=== PATIENT | female | born 1995 | race Two or more races ===

== ENCOUNTER 2019-07-15 12:30 | Observation (INO) | payer MEDICAID | END 2019-07-15 14:15 | disposition home or self-care (01) | DRG 861 | LOC: LDRP 12:30 | PROVIDERS: ADMIT Specialist; ATTEND Specialist | DX: Z34.83 Encounter for supervision of other normal pregnancy, third trimester (principal); Z3A.40 40 weeks gestation of pregnancy | CPT/HCPCS: 59025; 76818; 81002; G0378 ==

== ENCOUNTER 2019-07-17 08:56 | Observation (INO) | payer MEDICAID ==
[2019-07-17] MEDS ORDERED: PREN-96 PO (11:42)
[2019-07-17 13:11] LABS: Basophils # (auto) 0 uL; Basophils % (auto) 0.4 % (0.0-2.0); Hemoglobin 11.9 g/dL (12.2-16.2); Monocytes # (auto) 0.5 uL; White Blood Cell 9.1 10^3/uL (4.4-10.8)
[2019-07-17 13:12] LABS: Eosinophils # (auto) 0 uL; Eosinophils % (auto) 0.4 % (0.0-7.0); Hematocrit 36.1 % (36.0-46.0); Lymphocytes # (auto) 1.4 uL; Lymphocytes % (auto) 15.9 % (10.0-50.0); Mean Corpuscular Hemoglobin 26.7 pg (28.0-32.0); Mean Corpuscular Hgb Conc. 32.9 g/dL (32.0-36.0); Mean Corpuscular Volume 81.2 fL (80.0-100.0); Neutrophils # (auto) 7.1 uL; Neutrophils % (auto) 78.3 % (37.0-80.0); Platelet Count (auto) 147 10^3/uL (140-450); Red Blood Cells 4.44 10^6/uL (4.0-5.20); Red Cell Distribution Width 16.4 % (11.8-14.3)
[2019-07-17 13:14] LABS: Albumin 2.5 g/dL (3.4-5.0); Calcium 8.7 mg/dL (8.5-10.1); Potassium 4.1 mmol/L (3.5-5.1)
[2019-07-17 13:16] LABS: INR < 0.93 (0.9-1.15); Partial Thromboplastin Time 25.1 sec (23.64-32.05)
[2019-07-17 13:23] LABS: BUN/Creatinine Ratio 14.8; Bilirubin, Total 0.2 mg/dL (0.2-1.0); Total Protein 6.4 g/dL (6.4-8.2); Uric Acid 4.2 mg/dL (2.6-6.0)
[2019-07-17 13:44] LABS: Urine Bacteria FEW /hpf (None Seen); Urine Blood Negative /uL (Negative); Urine Mucus FEW (None Seen); Urine WBC 298 /hpf (0 - 5)
== END 2019-07-17 15:00 | disposition home or self-care (01) | DRG 566 ==
LOC: LDRP 08:56
PROVIDERS: ADMIT Obstetrics & Gynecology; ATTEND Obstetrics & Gynecology
DX: O48.0 Post-term pregnancy (principal); Z3A.40 40 weeks gestation of pregnancy
CPT/HCPCS: 36415; 59025; 76818; 80053; 81001; 81002; 84550; 85025; 85610; 85730; G0378

== ENCOUNTER 2019-07-19 09:26 | Observation (INO) | payer MEDICAID ==
[~2019-07-19 09:26] MED LIST: PREN-96 PO
[2019-07-19 11:34] LABS: Protein, Urine 17.8 mg/dL (0.0-11.9)
[2019-07-19 11:38] LABS: 24 Hr. Total Protein, Urine 302.6 mg/24 Hr (<149.1)
== END 2019-07-19 11:57 | disposition home or self-care (01) | DRG 861 ==
LOC: LDRP 09:26
PROVIDERS: ADMIT Specialist; ATTEND Specialist
DX: Z34.83 Encounter for supervision of other normal pregnancy, third trimester (principal); Z3A.40 40 weeks gestation of pregnancy
CPT/HCPCS: 59025; 76818; 81002; 84156; G0378

== ENCOUNTER 2019-07-20 05:39 | Inpatient (IN) | payer MEDICAID ==
[~2019-07-20] VITALS: Ht 160 cm; Wt 80.7 kg
[2019-07-20] MEDS ORDERED: LACT. RINGERS/OXYTOCIN 20UNITS 1,000 ML IV SCH ×2 (07:38→17:00)
[2019-07-20] MEDS ORDERED: PHISODERM TOP SOLN 240ML BTL TOP PRN (07:45)
[2019-07-20] MEDS ORDERED: WITCH HAZEL-GLYCERIN PAD TOP PRN (07:45)
[2019-07-20] MEDS ORDERED: LIDOCAINE 2%HCL (LOCAL ANESTH.) INJ 20ML MDV ID ONE (07:45)
[2019-07-20] MEDS ORDERED: DERMOPLAST 60ML BOTTLE TOP PRN (07:45)
[2019-07-20 08:50] LABS: Urine Bacteria FEW /hpf (None Seen); Urine Blood 1+ /uL (Negative); Urine Specific Gravity 1.011 (1.001-1.035); Urine WBC 10 /hpf (0 - 5)
[2019-07-20 08:54] LABS: Basophils # (auto) 0 uL; Eosinophils # (auto) 0 uL; Hemoglobin 11.8 g/dL (12.2-16.2); Lymphocytes # (auto) 1.5 uL; Monocytes # (auto) 0.5 uL; Nucleated Red Blood Cells % 0.1 %
[2019-07-20 08:56] LABS: Basophils % (auto) 0.3 % (0.0-2.0); Eosinophils % (auto) 0.5 % (0.0-7.0); Hematocrit 35.5 % (36.0-46.0); Lymphocytes % (auto) 18.2 % (10.0-50.0); Mean Corpuscular Hemoglobin 26.9 pg (28.0-32.0); Mean Corpuscular Hgb Conc. 33.3 g/dL (32.0-36.0); Mean Corpuscular Volume 80.8 fL (80.0-100.0); Monocytes % (auto) 5.9 % (0.0-12.0); Neutrophils # (auto) 6.2 uL; Neutrophils % (auto) 75.1 % (37.0-80.0); Platelet Count (auto) 136 10^3/uL (140-450); Red Blood Cells 4.39 10^6/uL (4.0-5.20); Red Cell Distribution Width 16.4 % (11.8-14.3); White Blood Cell 8.2 10^3/uL (4.4-10.8)
[2019-07-20 09:00] LABS: INR < 0.93 (0.9-1.15); Partial Thromboplastin Time 25.6 sec (23.64-32.05)
[2019-07-20 09:05] LABS: Albumin 2.4 g/dL (3.4-5.0); Calcium 8.4 mg/dL (8.5-10.1); Potassium 3.9 mmol/L (3.5-5.1)
[2019-07-20 09:07] LABS: BUN/Creatinine Ratio 19.6
[2019-07-20 09:08] LABS: Alcohol, Urine < 3.0 mg/dL (0-5); Amphetamine Screen, Urine NEGATIVE (NEGATIVE); Barbiturate Scree,Urine NEGATIVE (NEGATIVE); Benzodiazephine Screen, Urine NEGATIVE (NEGATIVE); Cannabinoid Screen, Urine NEGATIVE (NEGATIVE); Cocaine Screen, Urine NEGATIVE (NEGATIVE); Opiate Scree,Urine NEGATIVE (NEGATIVE); Phencyclidine Screen, Urine NEGATIVE (NEGATIVE)
[2019-07-20 09:10] LABS: Bilirubin, Total 0.2 mg/dL (0.2-1.0)
[2019-07-20] MEDS: LACTATED RINGER'S 1,000 ML IV SCH ×3 (11:55→22:00)
[2019-07-20] MEDS ORDERED: TERBUTALINE SULFATE 1 MG/ML 1ML VIAL SC ONE (17:00)
[2019-07-20] MEDS ORDERED: LACTATED RINGER'S 1,000 ML IV ONE (20:10)
[2019-07-20] MEDS ORDERED: ePHEDrine SULFATE 50 MG/ML AMP IV ONE (20:15)
[2019-07-20] MEDS ORDERED: NALOXONE HCL 0.4 MG/ML VIAL IV ONE (20:15)
[2019-07-20] MEDS ORDERED: ceFAZolin 1GM 2 GM in D5W 5% 100 ML IV ONE (20:15)
[2019-07-20] MEDS ORDERED: fentaNYL W ROPIVACAINE 150 ML EPI SCH (20:15)
[2019-07-20] MEDS ORDERED: ceFAZolin 1GM/50ML 100 ML IV ONE (20:22)
[2019-07-20] MEDS ORDERED: ONDANSETRON HCL 4 MG/2 ML VIAL IV PRN (21:30)
[2019-07-21] MEDS: ceFAZolin 1GM/50ML 50 ML IV SCH ×2 (04:14→06:00)
[2019-07-21] MEDS: LACTATED RINGER'S 1,000 ML IV SCH (05:02)
[2019-07-21 09:30] VITALS: BP 123/66
--- NOTE | 2019-07-21 09:30 | NUR ---
Ambulation: Patient OOB with standby assistance by RN. Patient ambulated to bathroom with steady gait. Patient able to void 250ML without difficulty. [facility]icare teaching provided with returned demonstration by patient. Clean gown provided and bed linen changed. Patient ambulated back to bed with steady gait and no distress noted.
--- NOTE | 2019-07-21 10:03 | NUR ---
VOID #2 PT AMBULATED TO BATHROOM VIA STEADY GAIT. PT VOIDED 250ML CONRAD COLORED URINE. PT TOLERATED WELL. WILL CONTINUE TO MONITOR.
[2019-07-21 11:00] VITALS: BP 121/58
[2019-07-21] MEDS: IBUPROFEN 600 MG TAB PO PRN ×3 (11:20→22:54)
[2019-07-21 15:30] VITALS: BP 112/67
[2019-07-21 18:50] VITALS: BP 116/70
--- NOTE | 2019-07-21 18:50 | NUR ---
IV removal IV DC'd with sterile technique, catheter fully intact. Pressure dressing applied to site. Patient tolerated procedure well.
[2019-07-21 23:00] VITALS: BP 117/61
[2019-07-22 03:09] VITALS: BP 111/69
[2019-07-22 04:06] LABS: RPR Non Reactive (Non Reactive)
[2019-07-22] MEDS ORDERED: ACETAMINOPHEN 325 MG TAB PO PRN (04:45)
[2019-07-22 06:06] LABS: Rubella Antibodies, IgG 2.43 index (Immune >0.99)
[2019-07-22 06:35] VITALS: BP 107/67
[2019-07-22] MEDS: IBUPROFEN 600 MG TAB PO PRN ×3 (06:50→19:23)
[2019-07-22 10:44] VITALS: BP 106/70
[2019-07-22 14:47] VITALS: BP 120/80
[2019-07-22 19:15] VITALS: BP 122/70
[2019-07-22 23:00] VITALS: BP 116/73
[2019-07-23 03:00] VITALS: BP 102/51
[2019-07-23 06:30] VITALS: BP 116/69
--- NOTE | 2019-07-23 08:50 | NUR ---
Discharge: Discharge instructions given as ordered. Pt encouraged to follow up with EMPLOYMENT DIRECTOR as instructed. All questions and concerns addressed. Patient verbalized understanding. Medication reconciliation completed and copy given to patient. All required/requested vaccines given and copies of vaccinations given to patient. Patient encouraged to prepare to depart unit.
[2019-07-23 09:05] VITALS: BP 118/74
--- NOTE | 2019-07-23 09:05 | NUR ---
Discharge: Patient taken to vehicle via wheelchair with all personal belongings, accompanied by staff and family member. No distress noted at time of departure, no adverse changes in status since initial assessment.
== END 2019-07-23 09:05 | disposition home or self-care (01) | DRG 560 ==
LOC: LDRP 05:39
PROVIDERS: ADMIT Specialist; ATTEND Specialist
PROC: 3E0R3BZ Introduction of Anesthetic Agent into Spinal Canal, Percutaneous Approach (ICD-10-PCS; 2019-07-20)
PROC: 00HU33Z Insertion of Infusion Device into Spinal Canal, Percutaneous Approach (ICD-10-PCS; 2019-07-20)
PROC: 10D07Z6 Extraction of Products of Conception, Vacuum, Via Natural or Artificial Opening (ICD-10-PCS; principal; 2019-07-21)
PROC: 0W8NXZZ Division of Female Perineum, External Approach (ICD-10-PCS; 2019-07-21)
DX: O42.92 Full-term premature rupture of membranes, unspecified as to length of time between rupture and onset of labor (principal); O66.5 Attempted application of vacuum extractor and forceps; O75.89 Other specified complications of labor and delivery; Z37.0 Single live birth; Z3A.40 40 weeks gestation of pregnancy
CPT/HCPCS: 36415; 51702; 59025; 59409; 62282; 80053; 80307; 81001; 81002; 84112; 85025; 85610; 85730; 86592; 86703; 86762; 86850; 86900; 86901; 87340; 94762; 96365; 96366; 96374; 96375; G0378; J0690; J2590; J3010; J7060